=== PATIENT | female | born 1930 | race Caucasian/White ===

== ENCOUNTER 2016-04-22 | Outpatient (CLI) | payer MEDICARE, OTHER | END 2016-04-22 01:24 | disposition EMS.NT ==

== ENCOUNTER 2016-07-26 08:00 | Outpatient (CLI) | payer MEDICARE, OTHER | END 2016-07-26 08:01 | disposition home or self-care (01) | DX: E78.5 Hyperlipidemia, unspecified (principal); G45.9 Transient cerebral ischemic attack, unspecified; R30.0 Dysuria ==

== ENCOUNTER 2016-12-28 18:00 | Outpatient (CLI) | payer MEDICARE, OTHER | END 2016-12-28 18:01 | disposition home or self-care (01) | LOC: LAB.R 18:00 | PROVIDERS: ATTEND Physician Assistant Medical | DX: N39.0 Urinary tract infection, site not specified (principal) | CPT/HCPCS: 87077; 87086 ==

== ENCOUNTER 2017-07-30 08:00 | Outpatient (CLI) | payer MEDICARE, OTHER ==
[2017-07-30 13:23] LABS: BASOPHILS % (AUTO) 0.6 %; EOSINOPHILS # (AUTO) 0.2 10^3/uL (0.0-0.7); EOSINOPHILS % (AUTO) 4.2 %; HGB - HEMOGLOBIN 13.4 g/dL (12.0-16.0); LYMPHOCYTES # (AUTO) 1.2 10^3/uL (1.5-3.5); LYMPHOCYTES % (AUTO) 22.4 %; MEAN CORPUSCULAR HEMOGLOBIN 31.7 pg (27.0-31.0); MEAN CORPUSCULAR HGB CONC 33.6 g/dL (32.0-36.0); MEAN CORPUSCULAR VOLUME 94.3 fL (81.0-99.0); MEAN PLATELET VOLUME 8.4 fL (7.9-10.8); MONOCYTES # (AUTO) 0.4 10^3/uL (0.0-1.0); MONOCYTES % (AUTO) 6.7 %; NEUTROPHILS # (AUTO) 3.6 10^3/uL (1.5-6.6); NEUTROPHILS % (AUTO) 66.1 %; PLT - PLATELET COUNT 260 10^3/uL (130-450); RED BLOOD COUNT 4.24 10^6/uL (4.20-5.40); RED CELL DISTRIBUTION WIDTH 13.5 % (12.0-15.0); WHITE BLOOD COUNT 5.4 x10^3/uL (4.8-10.8)
[2017-07-30 13:38] LABS: ALBUMIN 3.9 g/dL (3.2-5.5); ALBUMIN/GLOBULIN RATIO 1.3 (1.0-2.2); ALKALINE PHOSPHATASE 53 IU/L (42-121); ALT ALANINE AMINOTRANSFERASE 15 IU/L (10-60); AST ASPARTATE AMINOTRANSFERASE 21 IU/L (10-42); BUN - BLOOD UREA NITROGEN 25 mg/dL (6-20); CALCIUM 8.8 mg/dL (8.5-10.3); CARBON DIOXIDE - CO2 28 mmol/L (21-32); CHLORIDE 103 mmol/L (101-111); CHOL/HDL RATIO 2.6 (<4.4); CHOLESTEROL 172 mg/dL; CREATININE 0.7 mg/dL (0.4-1.0); GFR - MDRD 80 (>89); GLUCOSE 103 mg/dL (70-100); HDL CHOLESTEROL 67 mg/dL; LDL CHOLESTEROL,CALCULATED 92 mg/dL; LDL/HDL RATIO 1.4 (<4.4); SODIUM 138 mmol/L (135-145); TOTAL PROTEIN 6.9 g/dL (6.7-8.2); VLDL CHOLESTEROL 13 mg/dL
== END 2017-07-30 08:01 | disposition home or self-care (01) ==
LOC: LAB.WCP 08:00
PROVIDERS: ATTEND Physician Assistant Medical
DX: E78.5 Hyperlipidemia, unspecified (principal); G45.9 Transient cerebral ischemic attack, unspecified
CPT/HCPCS: 36415; 80053; 80061; 83721; 85025

== ENCOUNTER 2017-12-17 08:00 | Outpatient (CLI) | payer MEDICARE, OTHER ==
[2017-12-17 13:02] LABS: BASOPHILS % (AUTO) 0.7 %; EOSINOPHILS # (AUTO) 0.2 10^3/uL (0.0-0.7); EOSINOPHILS % (AUTO) 2.8 %; HGB - HEMOGLOBIN 13.6 g/dL (12.0-16.0); LYMPHOCYTES # (AUTO) 1.3 10^3/uL (1.5-3.5); LYMPHOCYTES % (AUTO) 19.6 %; MEAN CORPUSCULAR HEMOGLOBIN 31.8 pg (27.0-31.0); MEAN CORPUSCULAR HGB CONC 34.1 g/dL (32.0-36.0); MEAN CORPUSCULAR VOLUME 93.5 fL (81.0-99.0); MEAN PLATELET VOLUME 8.3 fL (7.9-10.8); MONOCYTES # (AUTO) 0.4 10^3/uL (0.0-1.0); MONOCYTES % (AUTO) 6.9 %; NEUTROPHILS # (AUTO) 4.5 10^3/uL (1.5-6.6); PLT - PLATELET COUNT 246 10^3/uL (130-450); RED BLOOD COUNT 4.27 10^6/uL (4.20-5.40); RED CELL DISTRIBUTION WIDTH 13.2 % (12.0-15.0); WHITE BLOOD COUNT 6.4 x10^3/uL (4.8-10.8)
[2017-12-17 13:20] LABS: ALBUMIN 3.8 g/dL (3.2-5.5); ALBUMIN/GLOBULIN RATIO 1.3 (1.0-2.2); ALKALINE PHOSPHATASE 51 IU/L (42-121); ALT ALANINE AMINOTRANSFERASE 14 IU/L (10-60); AST ASPARTATE AMINOTRANSFERASE 21 IU/L (10-42); BILIRUBIN,TOTAL 1.4 mg/dL (0.2-1.0); BUN - BLOOD UREA NITROGEN 15 mg/dL (6-20); CARBON DIOXIDE - CO2 27 mmol/L (21-32); CHLORIDE 106 mmol/L (101-111); CHOL/HDL RATIO 2.4 (<4.4); CHOLESTEROL 190 mg/dL; CREATININE 0.5 mg/dL (0.4-1.0); GFR - MDRD 117 (>89); GLUCOSE 103 mg/dL (70-100); HDL CHOLESTEROL 80 mg/dL; LDL CHOLESTEROL,CALCULATED 93 mg/dL; LDL/HDL RATIO 1.2 (<4.4); SODIUM 139 mmol/L (135-145); TOTAL PROTEIN 6.8 g/dL (6.7-8.2); VLDL CHOLESTEROL 17 mg/dL
== END 2017-12-17 08:01 | disposition home or self-care (01) ==
LOC: LAB.WCP 08:00
PROVIDERS: ATTEND Physician Assistant
DX: E78.5 Hyperlipidemia, unspecified (principal); Z79.899 Other long term (current) drug therapy
CPT/HCPCS: 36415; 80053; 80061; 83721; 85025

== ENCOUNTER 2018-10-23 08:00 | Outpatient (CLI) | payer MEDICARE, OTHER ==
[2018-10-23 12:51] LABS: BASOPHILS % (AUTO) 0.8 %; EOSINOPHILS # (AUTO) 0.1 10^3/uL (0.0-0.7); HGB - HEMOGLOBIN 12.9 g/dL (12.0-16.0); LYMPHOCYTES # (AUTO) 1.5 10^3/uL (1.5-3.5); LYMPHOCYTES % (AUTO) 29.5 %; MEAN CORPUSCULAR HEMOGLOBIN 30.4 pg (27.0-31.0); MEAN CORPUSCULAR VOLUME 97.9 fL (81.0-99.0); MEAN PLATELET VOLUME 9.9 fL (7.9-10.8); MONOCYTES # (AUTO) 0.3 10^3/uL (0.0-1.0); MONOCYTES % (AUTO) 6.7 %; NEUTROPHILS % (AUTO) 60.8 %; PLT - PLATELET COUNT 250 10^3/uL (130-450); RED BLOOD COUNT 4.25 10^6/uL (4.20-5.40); RED CELL DISTRIBUTION WIDTH 13.2 % (12.0-15.0); WHITE BLOOD COUNT 4.9 x10^3/uL (4.8-10.8)
[2018-10-23 14:17] LABS: BILIRUBIN,TOTAL 1.3 mg/dL (0.2-1.0); BUN - BLOOD UREA NITROGEN 17 mg/dL (6-20); CARBON DIOXIDE - CO2 25 mmol/L (21-32); CHLORIDE 105 mmol/L (101-111); CREATININE 0.6 mg/dL (0.4-1.0); GFR - MDRD 95 (>89); GLUCOSE 104 mg/dL (70-100); SODIUM 141 mmol/L (135-145)
[2018-10-23 14:18] LABS: ALBUMIN 3.9 g/dL (3.2-5.5); ALBUMIN/GLOBULIN RATIO 1.3 (1.0-2.2); ALKALINE PHOSPHATASE 59 IU/L (42-121); ALT ALANINE AMINOTRANSFERASE 13 IU/L (10-60); AST ASPARTATE AMINOTRANSFERASE 22 IU/L (10-42); CHOL/HDL RATIO 2.1 (<4.4); CHOLESTEROL 182 mg/dL; HDL CHOLESTEROL 86 mg/dL; LDL CHOLESTEROL,CALCULATED 83 mg/dL; TOTAL PROTEIN 6.9 g/dL (6.7-8.2); VLDL CHOLESTEROL 13 mg/dL
== END 2018-10-23 23:59 | disposition home or self-care (01) ==
LOC: LAB.WCP 08:00
PROVIDERS: ATTEND Physician Assistant Medical
DX: E78.5 Hyperlipidemia, unspecified (principal); N39.0 Urinary tract infection, site not specified
CPT/HCPCS: 36415; 80053; 80061; 83721; 85025

== ENCOUNTER 2019-08-06 12:30 | Outpatient (CLI) | payer MEDICARE, OTHER | END 2019-08-06 12:31 | disposition short-term general hospital (02) | LOC: EMS 12:30 | PROVIDERS: ATTEND Surgery | DX: R51 Headache (principal); M54.9 Dorsalgia, unspecified; M25.551 Pain in right hip; W10.9XXA Fall (on) (from) unspecified stairs and steps, initial encounter; Y92.009 Unspecified place in unspecified non-institutional (private) residence as the place of occurrence of the external cause | CPT/HCPCS: A0425; A0427 ==

== ENCOUNTER 2019-08-14 08:00 | Outpatient (CLI) | payer MEDICARE, OTHER ==
[2019-08-14 13:37] LABS: ALBUMIN 3.9 g/dL (3.2-5.5); ALBUMIN/GLOBULIN RATIO 1.3 (1.0-2.2); ALKALINE PHOSPHATASE 59 IU/L (42-121); ALT ALANINE AMINOTRANSFERASE 12 IU/L (10-60); AST ASPARTATE AMINOTRANSFERASE 20 IU/L (10-42); BUN - BLOOD UREA NITROGEN 21 mg/dL (6-20); CALCIUM 9.3 mg/dL (8.5-10.3); CARBON DIOXIDE - CO2 28 mmol/L (21-32); CHLORIDE 103 mmol/L (101-111); CHOL/HDL RATIO 2.5 (<4.4); CHOLESTEROL 157 mg/dL; CREATININE 0.6 mg/dL (0.4-1.0); GLUCOSE 105 mg/dL (70-100); HDL CHOLESTEROL 64 mg/dL; LDL CHOLESTEROL,CALCULATED 73 mg/dL; LDL/HDL RATIO 1.1 (<4.4); SODIUM 138 mmol/L (135-145); TOTAL PROTEIN 6.8 g/dL (6.7-8.2); VLDL CHOLESTEROL 20 mg/dL
== END 2019-08-14 23:59 | disposition home or self-care (01) ==
LOC: LAB.WCP 08:00
PROVIDERS: ATTEND Physician Assistant Medical
DX: E78.5 Hyperlipidemia, unspecified (principal); G45.9 Transient cerebral ischemic attack, unspecified
CPT/HCPCS: 36415; 80053; 80061; 83721; 83880

== ENCOUNTER 2019-08-20 08:00 | Outpatient (CLI) | payer MEDICARE, OTHER ==
[2019-08-21 07:46] LABS: BILIRUBIN,URINE NEGATIVE (NEGATIVE); CLARITY,URINE CLEAR (CLEAR); GLUCOSE, URINE (UA) NEGATIVE (NEGATIVE); KETONES,URINE (UA) NEGATIVE (NEGATIVE); LEUKOCYTE ESTERASE, URINE MODERATE (NEGATIVE); NITRITE,URINE POSITIVE (NEGATIVE); OCCULT BLOOD,URINE MODERATE (NEGATIVE); PROTEIN,URINE NEGATIVE (NEGATIVE); UROBILINOGEN,URINE 0.2 (NORMAL) E.U./dL (NORMAL)
[2019-08-21 07:47] LABS: BACTERIA,URINE Many /HPF (None Seen); EPITHELIAL CELLS,UR FEW Transitional /HPF (<= Few); SQUAMOUS EPITHELIAL CELL,UR FEW Squamous (<= Few)
== END 2019-08-20 23:59 | disposition home or self-care (01) ==
LOC: LAB.R 08:00
PROVIDERS: ATTEND Nurse Practitioner Family
DX: R30.0 Dysuria (principal); R33.9 Retention of urine, unspecified
CPT/HCPCS: 81001; 81003; 87086; 87181

== ENCOUNTER 2019-09-03 14:02 | Outpatient (CLI) | payer MEDICARE, OTHER ==
--- NOTE | 2019-09-03 15:23 | XRAY Report ---
Reason: ACUTE LOW BACK PAIN,L WRIST PAIN Procedure Date: 09/03/2019 Accession Number: [id number] / [id number] Procedure: XR - Wrist 3 View LT CPT Code: Final Report FULL RESULT: PROCEDURE: Wrist 3 View LT INDICATIONS: ACUTE LOW BACK PAIN,L WRIST PAIN TECHNIQUE: 3 views of the wrist were acquired. COMPARISON: None FINDINGS: Bones: No acute fractures or dislocations. Diffuse osteopenia. Moderate degenerative changes involving the first carpometacarpal joint and triscaphe joint. Degenerative changes of the distal radial carpal joint. No suspicious bony lesions. Soft tissues: No suspicious soft tissue calcifications. Soft tissue calcifications of the TFCC. IMPRESSION: Left wrist without acute fracture or dislocation. 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 Diffuse osteopenia. If there is persistent clinical concern for radiographically occult fracture or internal soft tissue derangement, recommend further evaluation with cross-sectional imaging such as CT or MRI. Reviewed by: Kadeem Mane MD on 09/03/2019 3:21 PM PDT Approved by: Kadeem Mane MD on 09/03/2019 3:21 PM PDT Station ID: [id number]
--- NOTE | 2019-09-03 15:25 | XRAY Report ---
Reason: ACUTE LOW BACK PAIN,L WRIST PAIN Procedure Date: 09/03/2019 Accession Number: [id number] / [id number] Procedure: XR - Lumbar Spine Complete CPT Code: Final Report FULL RESULT: PROCEDURE: Lumbar Spine Complete INDICATIONS: ACUTE LOW BACK PAIN,L WRIST PAIN TECHNIQUE: 5 views of the lumbar spine were acquired. COMPARISON: None. FINDINGS: Bones: 5 [id number] vertebrae are present. There is mild levoscoliosis of lumbar spine centered at L2-3 level.. Grade 1 anterolisthesis of L4 on L5 is seen. Degenerative endplate changes and bilateral facet arthrosis throughout lumbar spine is noted. Age-indeterminate anterior wedge compression deformity is noted at T12 level with up to 35% loss of T12 vertebral body height anteriorly. No suspicious bony lesions. Soft tissues: Overlying bowel gas pattern is normal. No suspicious soft tissue calcifications. Oblique views: No definite pars defect is seen. IMPRESSION: Age-indeterminate anterior wedge compression deformity at T12 level. No other compression fracture is seen. Grade 1 anterolisthesis of L4 on L5, no definite pars defect is seen. Degenerative disc disease throughout lumbar spine. Reviewed by: Reji Hutchison MD on 09/03/2019 3:24 PM PDT Approved by: Reji Hutchison MD on 09/03/2019 3:24 PM PDT Station ID: [id number]
== END 2019-09-03 14:03 | disposition home or self-care (01) ==
LOC: DI 14:02
PROVIDERS: ATTEND Physician Assistant Medical
DX: M43.16 Spondylolisthesis, lumbar region (principal); M51.36 Other intervertebral disc degeneration, lumbar region; M51.84 Other intervertebral disc disorders, thoracic region; M18.12 Unilateral primary osteoarthritis of first carpometacarpal joint, left hand; M19.032 Primary osteoarthritis, left wrist
CPT/HCPCS: 72110

== ENCOUNTER 2019-10-02 11:45 | Outpatient (CLI) | payer MEDICARE, OTHER ==
--- NOTE | 2019-10-02 15:44 | CT Report ---
PROCEDURE: HEAD WO INDICATIONS: SUBDURAL INTRACRAINIAL HEMMORRHAGE TECHNIQUE: Noncontrast 4.5 mm thick angled axial sections acquired from the foramen magnum to the vertex. For r adiation dose reduction, the following was used: automated exposure control, adjustment of mA and/or kV according to patient size. COMPARISON: None. FINDINGS: Image quality: Excellent. CSF spaces: Basal cisterns are patent. No extra-axial fluid collections. The ventricles are symmet william in size and shape. Brain: No intracranial bleeds or masses. There is cerebral volume loss for age, with resultant vent ricular and sulcal prominence. There are periventricular and deep white matter chronic small vessel ischemic changes. There is intracranial internal carotid artery atherosclerosis. Skull and face: Calvarium and visualized facial bones appear intact, without suspicious lesions. Sinuses: Visualized sinuses and mastoids are clear. IMPRESSION: 1. No acute intracranial disease process. 2. No subdural hematoma. 3. Mild, diffuse cerebral volume loss. 4. Mild periventricular and subcortical white matter chronic microvascular ischemic change. Reviewed by: Jodie Duffy MD, PhD on 10/02/2019 3:43 PM PDT Approved by: Jodie Duffy MD, PhD on 10/02/2019 3:43 PM PDT Station ID: [id number]
== END 2019-10-02 11:46 | disposition home or self-care (01) ==
LOC: DI 11:45
PROVIDERS: ATTEND Physician Assistant Medical
DX: I62.00 Nontraumatic subdural hemorrhage, unspecified (principal)
CPT/HCPCS: 70450

== ENCOUNTER 2019-12-12 12:28 | Outpatient (CLI) | payer MEDICARE, OTHER ==
[2019-12-12 19:35] LABS: BASOPHILS # (AUTO) 0.1 10^3/uL (0.0-0.1); BASOPHILS % (AUTO) 0.7 %; EOSINOPHILS # (AUTO) 0.1 10^3/uL (0.0-0.7); EOSINOPHILS % (AUTO) 1.9 %; HGB - HEMOGLOBIN 13.3 g/dL (12.0-16.0); LYMPHOCYTES # (AUTO) 1.7 10^3/uL (1.5-3.5); LYMPHOCYTES % (AUTO) 23.9 %; MEAN CORPUSCULAR HEMOGLOBIN 32.3 pg (27.0-31.0); MEAN CORPUSCULAR HGB CONC 32.4 g/dL (32.0-36.0); MEAN CORPUSCULAR VOLUME 99.5 fL (81.0-99.0); MONOCYTES # (AUTO) 0.4 10^3/uL (0.0-1.0); MONOCYTES % (AUTO) 6.3 %; NEUTROPHILS # (AUTO) 4.7 10^3/uL (1.5-6.6); NEUTROPHILS % (AUTO) 66.9 %; PLT - PLATELET COUNT 270 10^3/uL (130-450); RED BLOOD COUNT 4.12 10^6/uL (4.20-5.40)
[2019-12-12 20:00] LABS: ALBUMIN/GLOBULIN RATIO 1.3 (1.0-2.2); ALKALINE PHOSPHATASE 63 IU/L (42-121); ALT ALANINE AMINOTRANSFERASE 15 IU/L (10-60); AST ASPARTATE AMINOTRANSFERASE 22 IU/L (10-42); BILIRUBIN,TOTAL 1.4 mg/dL (0.2-1.0); BUN - BLOOD UREA NITROGEN 22 mg/dL (6-20); CALCIUM 9.2 mg/dL (8.5-10.3); CARBON DIOXIDE - CO2 27 mmol/L (21-32); CHLORIDE 105 mmol/L (101-111); CHOL/HDL RATIO 2.5 (<4.4); CHOLESTEROL 186 mg/dL; CREATININE 0.6 mg/dL (0.4-1.0); GLUCOSE 95 mg/dL (70-100); HDL CHOLESTEROL 74 mg/dL; LDL CHOLESTEROL,CALCULATED 98 mg/dL; LDL/HDL RATIO 1.3 (<4.4); SODIUM 138 mmol/L (135-145); TOTAL PROTEIN 7.1 g/dL (6.7-8.2); VLDL CHOLESTEROL 14 mg/dL
== END 2019-12-12 23:59 | disposition home or self-care (01) ==
LOC: LAB.WCP 12:28
PROVIDERS: ATTEND Physician Assistant Medical
DX: C44.729 Squamous cell carcinoma of skin of left lower limb, including hip (principal); G45.9 Transient cerebral ischemic attack, unspecified; E78.5 Hyperlipidemia, unspecified
CPT/HCPCS: 36415; 80053; 80061; 83721; 84443; 85025

== ENCOUNTER 2021-06-20 12:31 | Outpatient (CLI) | payer MEDICARE, OTHER | END 2021-06-20 12:32 | disposition critical access hospital (66) | LOC: EMS 12:31 | DX: M25.551 Pain in right hip (principal); M25.511 Pain in right shoulder; M54.9 Dorsalgia, unspecified; W18.39XA Other fall on same level, initial encounter; Y92.003 Bedroom of unspecified non-institutional (private) residence as the place of occurrence of the external cause | CPT/HCPCS: A0425; A0429 ==

== ENCOUNTER 2021-06-20 12:51 | Emergency (ER) | payer MEDICARE, OTHER ==
--- NOTE | 2021-06-20 13:02 | ED Physician Documentation ---
History of Present Illness - Stated complaint Stated Complaint: R HIP/SHOULDER PX - Additonal information Additional information: 89-year-old female who has a history of of dementia at baseline presents to the emergency department via EMS for evaluation of pain in the right shoulder and right hip. At baseline she is wheelchair-bound. She attempted to get out of bed yesterday falling onto her right side. She is not anticoagulated did not strike her head or lose consciousness. Over the last 24 hours she is continued to complain of predominantly hip pain. The family was attempting to get her in the car to take her to a walk-in clinic but she complained of pain when fully upright and seated thus EMS was summoned and she is transported here. I have spoken with the patient's daughter Pascale and she indicates that the patient is typically ambulatory sometimes with a walker but she is not wheelchair-bound. Review of Systems Unable to obtain: Dementia, Other (History obtained from chart and EMS) Constitutional: reports: Fever, Chills PD PAST MEDICAL HISTORY - Past Medical History Cardiovascular: [place] : Kidney stones - Past Surgical History Past Surgical History: Yes - Present Medications Home Medications: Ambulatory Orders Medication Instructions Recorded Confirmed Clopidogrel [Plavix] 75 mg PO DAILY 01/21/14 01/21/14 Simvastatin [Zocor] 5 mg PO DAILY 01/21/14 01/21/14 - Allergies Allergies/Adverse Reactions: Allergies Allergy/AdvReac Type Severity Reaction Status Date / Time No Known Drug Allergies Allergy Verified 06/20/21 12:59 - Social History Does the pt smoke?: No Smoking Status: Never smoker Does the pt drink ETOH?: Yes - Immunizations Immunizations are current?: Yes PD ED PE EXPANDED - General General: Alert, No acute distress, Well developed/nourished - Neck Neck: Supple w/out meningeal sx, No tenderness. No: Adenopathy, Soft tissue TTP, Bony TTP, Limited ROM - Cardiac Cardiac: Regular Rate, Murmur Present, Radial strong equal, Pedal strong equal, Cap refill < 2 sec - Respiratory Respiratory: Clear to ausultation apple. No: Distress, Labored - Abdomen Abdomen: Normal Bowel sounds. No: Tender to palpation - Extremities Extremities: Normal, Tenderness, Right shoulder (Tenderness of the proximal humerus. Full range of motion of the shoulder both actively and passively against resistance.), Right hip (Mild tenderness elicited at the proximal gr eater trochanter. Patient is able to passively flex and extend the hip. No pain elicited with internal or external rotation. No swelling ecchymosis or deformity. No leg shortening or malrotation. Distal 2+ DP pulse.). No: Deformity Results - Vitals Vitals: Vital Signs - 24 hr 06/20/21 12:59 Temperature 37.1 C Heart Rate 80 Respiratory 16 Rate Blood Pressure 109/55 L O2 Saturation 97 Oxygen O2 Source Room air - Rads (name of study) cxr Radiology: Final report received (No acute cardiopulmonary process) right hip/pelvis Radiology: Final report received (No acute fracture or dislocation.) right shoulder Radiology: Final report received (No acute fracture or dislocation) PD MEDICAL DECISION MAKING - ED course Complexity details: considered differential, d/w patient ED course: 89-year-old female sent to the ER for evaluation of right shoulder and right hip pain after a fall out of bed yesterday afternoon. She is typically wheelchair- bound. The family was attempting to take her to walk-in clinic for evaluation but the patient reported too much pain when sitting upright in the car. However on presentation via EMS she was sitting fully upright in the gurney and did not appear to have any apparent pain. Exam of the shoulder shows mild tenderness of the proximal humerus however the patient has full active and passive range of motion. X-ray of the shoulder was unremarkable. There is some pain of the proximal trochanter with palpation but no pain was elicited with internal or external rotation. Also no pain with impaction test. X-ray of the hip and pelvis was without obvious findings. My suspicion for an occult fracture is rather low at this time. As such patient will be discharged home. Emergent return precautions were discussed. We did do a road test with the patient. She was able to ambulate in our hallway with a walker with minimal assist. I did discuss the x-ray findings with the patient's daughter Pat on the phone. They are continuing to work to see if the patient can get into assisted living versus memory care. Otherwise she is stable for discharge home Departure - Departure Disposition: Home, Self Care Clinical Impression: History of dementia Fall Qualifiers: Encounter type: initial encounter Qualified Code(s): W19.XXXA - Unspecified fall, initial encounter Right shoulder pain Qualifiers: Chronicity: acute Qualified Code(s): M25.511 - Pain in right shoulder Contusion of right hip Qualifiers: Encounter type: initial encounter Qualified Code(s): S70.01XA - Contusion of right hip, initial encounter Condition: Stable Record reviewed to determine appropriate education?: Yes Instructions: ED Contusion Lower Extr Ch Comments: Jayashree was seen today in the emergency department for pain in her right shoulder and right hip after a fall out of bed yesterday. The x-rays of both the hip shoulder and the chest do not show any worrisome findings or obvious fractures. While here in the emergency department we have been able to fully range her hip and shoulder and found that it was nonpainful. It is okay to give her Tylenol at home for any discomfort. If you find that her symptoms are not markedly improving over the next few days do not hesitate to follow-up with your primary care doctor or return to the emergency department
--- NOTE | 2021-06-20 13:41 | XRAY Report ---
PROCEDURE: Hip w/Pelvis 2-3V RT INDICATIONS: fell oob; pain right shoulder TECHNIQUE: AP pelvis with lateral view(s) of the right calcifications are noted within the pelvis li joselito related to uterine calcifications. hip(s). COMPARISON: None. FINDINGS: Bones: No fractures or dislocations. Pelvic ring appears intact. No suspicious bony lesions. Soft tissues: The visualized bowel gas pattern is normal. No suspicious soft tissue calcifications. IMPRESSION: No visualized acute fracture or dislocation. However, occult injury cannot be excluded. Recommend short interval imaging follow-up in 7-10 days as clinically indicated for additional evalua tion. Reviewed by: Ktae Gonzalez MD on 06/20/2021 1:40 PM PDT Approved by: Kate Gonzalez MD on 06/20/2021 1:40 PM PDT Station ID: [id number]
--- NOTE | 2021-06-20 13:41 | XRAY Report ---
PROCEDURE: Chest 1 View X-Ray INDICATIONS: fell oob TECHNIQUE: One view of the chest was acquired. COMPARISON: None FINDINGS: Surgical changes and devices: None. Lungs and pleura: No pleural effusions or pneumothorax. Lungs are clear. Mediastinum: Mediastinal contours appear normal. Heart size is mildly enlarged. Bones and chest wall: No suspicious bony lesions. Overlying soft tissues appear unremarkable. IMPRESSION: No acute pulmonary process. Reviewed by: Kate Gonzalez MD on 06/20/2021 1:40 PM PDT Approved by: Kate Gonzalez MD on 06/20/2021 1:40 PM PDT Station ID: [id number]
--- NOTE | 2021-06-20 13:41 | XRAY Report ---
PROCEDURE: Shoulder 2 View RT INDICATIONS: fell oob TECHNIQUE: 2 views of the shoulder were acquired. COMPARISON: Chest x-ray dated 06/20/2020 FINDINGS: Bones: No fractures or dislocations. No suspicious bony lesions. Visualized ribs appear intact. Soft tissues: No suspicious soft tissue calcifications. IMPRESSION: No visualized acute fracture or dislocation. However, occult injury cannot be excluded. Recommend short interval imaging follow-up in 7-10 days as clinically indicated for additional evalua tion. Reviewed by: Kate Gonzalez MD on 06/20/2021 1:39 PM PDT Approved by: Kate Gonzalez MD on 06/20/2021 1:39 PM PDT Station ID: [id number]
[2021-06-20 15:03] VITALS: BP 110/62
== END 2021-06-20 14:45 | disposition home or self-care (01) ==
LOC: EDUNIT# → ED 12:51
DX: S70.01XA Contusion of right hip, initial encounter (principal); W06.XXXA Fall from bed, initial encounter; M25.511 Pain in right shoulder; F03.90 Unspecified dementia, unspecified severity, without behavioral disturbance, psychotic disturbance, mood disturbance, and anxiety; Z99.3 Dependence on wheelchair
CPT/HCPCS: 99282; 99284

== ENCOUNTER 2021-06-29 16:54 | Outpatient (CLI) | payer MEDICARE, OTHER | END 2021-06-29 16:55 | disposition critical access hospital (66) | LOC: EMS 16:54 | DX: R53.1 Weakness (principal); R26.2 Difficulty in walking, not elsewhere classified | CPT/HCPCS: A0425; A0429 ==

== ENCOUNTER 2021-06-29 17:14 | Emergency (ER) | payer MEDICARE, OTHER ==
--- NOTE | 2021-06-29 17:42 | ED Physician Documentation ---
History of Present Illness - Stated complaint Stated Complaint: L SIDE WEAKNESS - Chief complaint Chief Complaint: Neuro - Additonal information Additional information: 89-year-old female who has a history most significant for dementia presents to the emergency department for evaluation of worsening weakness. Seen by myself recently after a fall in which the imaging was negative. At the time of the ED visit she was able to ambulate easily with a walker. The daughter at the bedside reports that over the last week she is gotten progressively weaker especially on the left side and is now no longer able to transition from bed to walker or wheelchair or vice versa. She has had no further falls. She presents pleasantly demented but somewhat oriented to person and time. Patient's daughter would like her to be seen by social work. They are trying to get her into assisted living but feel that she would benefit from inpatient rehabilitation first Review of Systems Constitutional: denies: Fever, Chills Eyes: reports: Reviewed and negative Nose: reports: Reviewed and negative Throat: reports: Reviewed and negative Cardiac: reports: Reviewed and negative Respiratory: reports: Reviewed and negative GI: reports: Reviewed and negative : reports: Reviewed and negative Skin: denies: Rash, Lesions Musculoskeletal: denies: Neck pain, Back pain, Extremity pain Neurologic: denies: Focal weakness PD PAST MEDICAL HISTORY - Past Medical History Cardiovascular: [place] : Kidney stones - Past Surgical History Past Surgical History: Yes - Present Medications Home Medications: Ambulatory Orders Medication Instructions Recorded Confirmed Clopidogrel [Plavix] 75 mg PO DAILY 01/21/14 06/29/21 Simvastatin [Zocor] 20 mg PO DAILY 01/21/14 06/29/21 Cefpodoxime Proxetil [Vantin] 100 mg PO Q12H #14 tablet 06/29/21 Sertraline [Zoloft] 25 mg PO DAILY 06/29/21 06/29/21 traZODone [Desyrel] 50 mg PO QPM PRN 06/29/21 06/29/21 - Allergies Allergies/Adverse Reactions: Allergies Allergy/AdvReac Type Severity Reaction Status Date / Time No Known Drug Allergies Allergy Verified 06/29/21 17:26 - Social History Does the pt smoke?: No Smoking Status: Never smoker Does the pt drink ETOH?: Yes - Immunizations Immunizations are current?: Yes PD ED PE EXPANDED - General General: Alert, No acute distress - Cardiac Cardiac: Regular Rate, Radial strong equal, Pedal strong equal, Cap refill < 2 sec. No: Murmur Present - Respiratory Respiratory: Clear to ausultation apple. No: Distress, Labored - Abdomen Abdomen: No: Tender to palpation - Back Back: Normal exam. No: Vertebral tenderness, Soft tissue tenderness - Extremities Extremities: Other (Motor strength 5 of 5 in all 4 extremities. No drift.) - Neuro Neuro: Confused, CNII-XII intact - GCS Eye Opening: Spontaneous Motor: Obeys Commands Verbal: Oriented Total: 15 Results - Vitals Vitals: Vital Signs - 24 hr 06/29/21 17:20 Temperature 37.0 C Heart Rate 84 Respiratory 24 Rate Blood Pressure 121/79 O2 Saturation 97 Oxygen O2 Source Room air - Labs Labs: Laboratory Tests 06/29/21 06/29/21 06/29/21 17:38 17:38 17:38 WBC 11.4 H RBC 4.25 Hgb 11.8 L Hct 36.7 L MCV 86.4 MCH 27.8 MCHC 32.2 RDW 14.5 Plt Count 563 H MPV 8.5 Neut # (Auto) 9.3 H Lymph # (Auto) 1.4 L [place]oula # (Auto) 0.6 Eos # (Auto) 0.0 Baso # (Auto) 0.1 Absolute Nucleated RBC 0.00 Nucleated RBC % 0.0 PT 12.5 INR 1.1 Sodium 139 Potassium 3.8 Chloride 99 L Carbon Dioxide 31 Anion Gap 9.0 BUN 14 Creatinine 0.5 Estimated GFR (MDRD) 116 Glucose 124 H Calcium 9.2 Total Bilirubin 0.4 AST 29 ALT 35 Alkaline Phosphatase 79 Total Protein 7.1 Albumin 3.1 L Globulin 4.0 Albumin/Globulin Ratio 0.8 L Lipase 45 Urine Color Urine Clarity Urine pH Ur Specific Bronson Urine Protein Urine Glucose (UA) Urine Ketones Urine Occult Blood Urine Nitrite Urine Bilirubin Urine Urobilinogen Ur Leukocyte Esterase Urine RBC Urine WBC Ur Squamous Epith Cells Urine Bacteria Ur Microscopic Review Urine Culture Comments 06/29/21 18:11 WBC RBC Hgb Hct MCV MCH MCHC RDW Plt Count MPV Neut # (Auto) Lymph # (Auto) Catahoula # (Auto) Eos # (Auto) Baso # (Auto) Absolute Nucleated RBC Nucleated RBC % PT INR Sodium Potassium Chloride Carbon Dioxide Anion Gap BUN Creatinine Estimated GFR (MDRD) Glucose Calcium Total Bilirubin AST ALT Alkaline Phosphatase Total Protein Albumin Globulin Albumin/Globulin Ratio Lipase Urine Color YELLOW Urine Clarity HAZY Urine pH 6.5 Ur Specific Bronson 1.010 Urine Protein NEGATIVE Urine Glucose (UA) NEGATIVE Urine Ketones NEGATIVE Urine Occult Blood TRACE-LYSE Urine Nitrite POSITIVE H Urine Bilirubin NEGATIVE Urine Urobilinogen 0.2 (NORMAL) Ur Leukocyte Esterase LARGE H Urine RBC 0-5 Urine WBC >25 H Ur Squamous Epith Cells RARE Squamous Urine Bacteria Moderate H Ur Microscopic Review INDICATED Urine Culture Comments INDICATED - Rads (name of study) CT head Radiology: Final report received (No acute intracranial abnormality. Cerebral volume loss and periventricular white matter chronic small vessel ischemic changes) PD MEDICAL DECISION MAKING - ED course Complexity details: reviewed results, re-evaluated patient, considered differential, d/w patient, d/w family ED course: 89-year-old female who has a history of dementia presents emergency department with progressive weakness over the last week. The family reports they are having a more difficult time getting her out of bed and into the wheelchair where she had previously been ambulatory with a walker. 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 On presentation she is alert and well-appearing. She has no obvious focal neuro deficits and the bedside exam shows no motor weakness or drift in the upper or lower extremities. Screening CT of the head today showed chronic microvascular ischemic changes but nothing to suggest acute infarcts. Screening labs do show likely acute cystitis. I have spoken extensively with the patient's daughter at the bedside. The patient and her are scheduled to go to [facility] tomorrow to the assisted living facility. Daughter is concerned that she would not be able to qualify for assisted living given the progressive weakness but she does not want her mom to remain in the hospital overnight to see social work. We discussed that the weakness may be due to progressive declining changes in the setting of advanced age and dementia. A prescription for Vantin will be sent to the [facility] in [place] for the cystitis. Otherwise patient will be discharged home. I did offer for the patient to remain in the emergency department overnight to see social work in the morning and/or consider an MRI but the patient's daughter declined that at this time. Departure - Departure Disposition: 01 Home, Self Care Clinical Impression: Generalized weakness Acute cystitis Qualifiers: Hematuria presence: without hematuria Qualified Code(s): N30.00 - Acute cystitis without hematuria Condition: Stable Record reviewed to determine appropriate education?: Yes Prescriptions: Cefpodoxime Proxetil [Vantin] 100 mg PO Q12H #14 tablet Comments: Jayashree was seen today in the emergency department because she has had progressive weakness over the last week. The CT of her head did not show any obvious infarcts bruising or bleeding within the brain. Her screening labs are essentially normal though she does have findings of a urinary tract infection. Because this could be a cause of worsening weakness we will treat it. A prescription for Vantin also known as Cefpodoxime has been sent to the [facility] in [place]. On exam Jayashree does not have any obvious focal weakness to her arms or legs though I do understand that she has been progressively weak to get out of bed. It is likely that she is entering the later stages of dementia. She may be better suited by a senior living or progressive memory care center where they can provide 24/7 care. If at any point you feel that her care cannot be rendered at home do not hesitate to return her immediately to the emergency department at which time we can have social work evaluate possible placement options. I wish you both well in your journey.
[2021-06-29 17:44] LABS: BASOPHILS # (AUTO) 0.1 10^3/uL (0.0-0.1); BASOPHILS % (AUTO) 0.4 %; EOSINOPHILS % (AUTO) 0.4 %; HCT - HEMATOCRIT 36.7 % (37.0-47.0); HGB - HEMOGLOBIN 11.8 g/dL (12.0-16.0); LYMPHOCYTES # (AUTO) 1.4 10^3/uL (1.5-3.5); MEAN CORPUSCULAR HEMOGLOBIN 27.8 pg (27.0-31.0); MEAN CORPUSCULAR HGB CONC 32.2 g/dL (32.0-36.0); MEAN CORPUSCULAR VOLUME 86.4 fL (81.0-99.0); MEAN PLATELET VOLUME 8.5 fL (7.9-10.8); MONOCYTES # (AUTO) 0.6 10^3/uL (0.0-1.0); MONOCYTES % (AUTO) 4.8 %; NEUTROPHILS # (AUTO) 9.3 10^3/uL (1.5-6.6); NEUTROPHILS % (AUTO) 81.5 %; PLT - PLATELET COUNT 563 10^3/uL (130-450); RED BLOOD COUNT 4.25 10^6/uL (4.20-5.40); RED CELL DISTRIBUTION WIDTH 14.5 % (12.0-15.0); WHITE BLOOD COUNT 11.4 x10^3/uL (4.8-10.8)
[2021-06-29 17:52] LABS: INR 1.1 (0.8-1.2); PT - PROTHROMBIN TIME 12.5 secs (9.9-12.6)
[2021-06-29 17:56] LABS: ALBUMIN 3.1 g/dL (3.2-5.5); ALBUMIN/GLOBULIN RATIO 0.8 (1.0-2.2); BILIRUBIN,TOTAL 0.4 mg/dL (0.2-1.0); CALCIUM 9.2 mg/dL (8.5-10.3); CREATININE 0.5 mg/dL (0.4-1.0); POTASSIUM 3.8 mmol/L (3.5-5.0); TOTAL PROTEIN 7.1 g/dL (6.7-8.2)
--- NOTE | 2021-06-29 18:10 | CT Report ---
PROCEDURE: HEAD WO INDICATIONS: left side weakness TECHNIQUE: Noncontrast 4.5 mm thick angled axial sections acquired from the foramen magnum to the vertex. For r adiation dose reduction, the following was used: automated exposure control, adjustment of mA and/or kV according to patient size. COMPARISON: Head CT without, 10/02/2019. FINDINGS: Image quality: Excellent. CSF spaces: Basal cisterns are patent. No extra-axial fluid collections. Ventricles are normal in size and shape. Brain: No midline shift. No intracranial masses or hemorrhage. Moderate cerebral volume loss and mi ld periventricular white matter chronic small vessel ischemic changes. Skull and face: Calvarium and visualized facial bones are intact, without suspicious lesions. Sinuses: Visualized sinuses and mastoids are clear. IMPRESSION: 1. No acute intracranial abnormality. 2. Cerebral volume loss and periventricular white matter chronic small vessel ischemic changes. Reviewed by: Alonzo Fleming MD on 06/29/2021 6:09 PM PDT Approved by: Alonzo Fleming MD on 06/29/2021 6:09 PM PDT Station ID: [id number]
[2021-06-29 18:18] LABS: BILIRUBIN,URINE NEGATIVE (NEGATIVE); CLARITY,URINE HAZY (CLEAR); GLUCOSE, URINE (UA) NEGATIVE (NEGATIVE); KETONES,URINE (UA) NEGATIVE (NEGATIVE); LEUKOCYTE ESTERASE, URINE LARGE (NEGATIVE); NITRITE,URINE POSITIVE (NEGATIVE); OCCULT BLOOD,URINE TRACE-LYSE (NEGATIVE); PH,URINE 6.5 PH (5.0-7.5); PROTEIN,URINE NEGATIVE (NEGATIVE); UROBILINOGEN,URINE 0.2 (NORMAL) E.U./dL (NORMAL)
[2021-06-29 18:34] LABS: BACTERIA,URINE Moderate /HPF (None Seen); RBC,URINE 0-5 /HPF (0-5); SQUAMOUS EPITHELIAL CELL,UR RARE Squamous (<= Few); WBC,URINE >25 /HPF (0-5)
[2021-06-29] MEDS ORDERED: CEFPODOXIME PROXETIL 100 MG TABLET PO STA (19:04)
[2021-06-29 19:34] VITALS: BP 119/88
== END 2021-06-29 19:34 | disposition home or self-care (01) ==
LOC: EDUNIT# → ED 17:14
DX: N30.00 Acute cystitis without hematuria (principal); R53.1 Weakness
CPT/HCPCS: 36415; 70450; 80053; 81001; 83690; 85025; 85610; 87086; 87181; 99283; 99284; A9270; 81003

== ENCOUNTER 2022-01-10 05:13 | Outpatient (CLI) | payer MEDICARE, OTHER | END 2022-01-10 05:14 | disposition EMS.NT | LOC: EMS 05:13 | DX: R11.0 Nausea (principal); R47.81 Slurred speech; M54.50 Low back pain, unspecified ==